=== PATIENT | male | born 1975 | race African-American/Black ===

== ENCOUNTER 2022-02-09 12:13 | Inpatient (IN) | payer OTHER ==
[2022-02-09] MEDS ORDERED: NICOTINE 10 MG CARTRIDGE (INHALER) IH PRN (13:51)
[2022-02-09] MEDS ORDERED: DICYCLOMINE HCL 10 MG CAPSULE PO PRN (13:51)
[2022-02-09] MEDS ORDERED: IBUPROFEN 600 MG TABLET (FP) PO PRN (13:51)
[2022-02-09] MEDS ORDERED: NICOTINE POLACRILEX 2 MG GUM BUC PRN (13:51)
[2022-02-09] MEDS ORDERED: ACETAMINOPHEN 325 MG TABLET (FP) PO PRN ×2 (13:51)
[2022-02-09] MEDS ORDERED: ONDANSETRON *ODT* 4 MG TABLET SL PRN (13:51)
[2022-02-09] MEDS ORDERED: MAGNESIUM CITRATE 300 ML BOTTLE PO PRN (13:51)
[2022-02-09] MEDS ORDERED: METHOCARBAMOL 500 MG TABLET PO PRN (13:51)
[2022-02-09] MEDS ORDERED: BISMUTH SUBSALICYLATE 262 MG/15 ML BTL PO PRN (13:51)
[2022-02-09] MEDS ORDERED: MAG HYDROX/AL HYDROX/SIMETH 30 ML UNIT-DOSE CUP PO PRN (13:51)
[2022-02-09] MEDS ORDERED: LOPERAMIDE HCL 2 MG CAPSULE PO PRN (13:51)
[2022-02-09] MEDS ORDERED: MAGNESIUM HYDROX 2400MG/30ML ORAL SUSPENSION 30 ML CUP PO PRN (13:51)
[2022-02-09] MEDS ORDERED: BENZOCAINE/MENTHOL (CHLORASEPTIC ) LOZENGE MM PRN (13:51)
[2022-02-09] MEDS ORDERED: IBUPROFEN 400 MG TABLET (FP) PO PRN (13:51)
[2022-02-09 16:47] VITALS: BMI 26.6
[2022-02-09] MEDS: hydrOXYzine PAMOATE 25 MG CAPSULE (FP) PO SCH ×3 (18:37→22:40)
[2022-02-09] MEDS: THIAMINE HCL 100 MG TABLET (FP) PO SCH (22:40)
[2022-02-09] MEDS: MELATONIN 5 MG TABLETS PO SCH (22:40)
[2022-02-10] MEDS: hydrOXYzine PAMOATE 25 MG CAPSULE (FP) PO SCH ×5 (07:49→22:35)
[2022-02-10] MEDS: PRENATAL VITAMINS W/ FOLIC ACID TABLET (FP) PO SCH (10:46)
[2022-02-10] MEDS: THIAMINE HCL 100 MG TABLET (FP) PO SCH (22:35)
[2022-02-10] MEDS: MELATONIN 5 MG TABLETS PO SCH (22:35)
[2022-02-11] MEDS ORDERED: chlordiazePOXIDE HCL 10 MG CAPSULE PO PRN
[2022-02-11] MEDS: hydrOXYzine PAMOATE 25 MG CAPSULE (FP) PO SCH ×5 (06:59→22:08)
[2022-02-11] MEDS: PRENATAL VITAMINS W/ FOLIC ACID TABLET (FP) PO SCH (10:10)
[2022-02-11] MEDS: chlordiazePOXIDE HCL 10 MG CAPSULE PO SCH ×3 (12:04→22:08)
[2022-02-11] MEDS: MELATONIN 5 MG TABLETS PO SCH (22:07)
[2022-02-11] MEDS: THIAMINE HCL 100 MG TABLET (FP) PO SCH (22:08)
[2022-02-12] MEDS: chlordiazePOXIDE HCL 10 MG CAPSULE PO SCH ×2 (06:21→17:44)
[2022-02-12] MEDS: hydrOXYzine PAMOATE 25 MG CAPSULE (FP) PO SCH ×5 (06:21→22:49)
[2022-02-12] MEDS: PRENATAL VITAMINS W/ FOLIC ACID TABLET (FP) PO SCH (09:57)
[2022-02-12 10:49] LABS: ALBUMIN 3.2 g/dl (3.4-5.0)
[2022-02-12 10:51] LABS: CREATININE 0.9 mg/dL (0.55-1.3)
[2022-02-12 10:52] LABS: TOT PROT 6.5 g/dl (6.4-8.2)
[2022-02-12 10:53] LABS: BILIRUBIN,TOTAL 0.2 mg/dL (0.2-1)
[2022-02-12 10:55] LABS: BASO % 0.7 % (0-2.0); EOS % 2.4 % (0-4.5); HEMATOCRIT 42.6 % (35.4-49); HEMOGLOBIN 14.2 GM/dL (11.7-16.9); MCH 31.2 pg (25.7-33.7); MCHC 33.2 g/dl (32.0-35.9); MEAN PLT VOLUME 8.9 fl (7.5-11.1); MONO % 9.6 % (3.8-10.2); NEUT % 57.3 % (42.8-82.8); PLATELET COUNT 197 10^3/uL (134-434); RBC 4.53 M/mm3 (4.00-5.60); RDW 16.6 % (11.9-15.9); WHITE BLOOD COUNT 5.3 K/mm3 (4.0-10.0)
[2022-02-12 11:27] LABS: BLOOD UREA NITROGEN 11.7 mg/dL (7-18); CALCIUM 8.7 mg/dL (8.5-10.1)
[2022-02-12] MEDS: THIAMINE HCL 100 MG TABLET (FP) PO SCH (22:49)
[2022-02-12] MEDS: MELATONIN 5 MG TABLETS PO SCH (22:49)
[2022-02-13] MEDS ORDERED: chlordiazePOXIDE HCL 10 MG CAPSULE PO ONE (05:00)
[2022-02-13] MEDS: hydrOXYzine PAMOATE 25 MG CAPSULE (FP) PO SCH (06:42)
[2022-02-13 07:27] VITALS: PULSE 66
[2022-02-13 09:13] VITALS: BP 126/85; TEMP 97.3
== END 2022-02-13 09:40 | disposition home or self-care (01) | DRG 897 ==
LOC: YASAS 12:13 → UNDOADMIN 17:01 → Y3N 17:01
PROVIDERS: ADMIT Allergy & Immunology; ATTEND Surgery
PROC: HZ2ZZZZ Detoxification Services for Substance Abuse Treatment (ICD-10-PCS; principal; 2022-02-09)
DX: F10.230 Alcohol dependence with withdrawal, uncomplicated (principal); F17.210 Nicotine dependence, cigarettes, uncomplicated; Z91.013 Allergy to seafood; Z56.0 Unemployment, unspecified
CPT/HCPCS: 36415; 80053; 85025; 86780; 93005; 93010; C9803-CS; U0003; U0005